=== PATIENT | male | born 1945 | race Two or more races ===

== ENCOUNTER 2017-12-22 14:25 | Outpatient (CLI) | payer OTHER | END 2017-12-22 15:04 | disposition home or self-care (01) | LOC: RAD 501 14:25 | DX: M79.604 Pain in right leg (principal); M25.571 Pain in right ankle and joints of right foot ==

== ENCOUNTER 2021-02-24 14:39 | Outpatient (CLI) | payer OTHER | END 2021-02-24 14:46 | disposition home or self-care (01) | LOC: RAD 14:39 | PROVIDERS: ATTEND Internal Medicine Cardiovascular Disease | DX: M54.59 Other low back pain (principal); M70.20 Olecranon bursitis, unspecified elbow; M79.604 Pain in right leg ==

== ENCOUNTER 2022-03-17 08:56 | Outpatient (CLI) | payer OTHER | END 2022-03-17 12:53 | disposition home or self-care (01) | LOC: TOM 08:56 | PROVIDERS: ATTEND Internal Medicine Cardiovascular Disease | DX: R10.32 Left lower quadrant pain (principal); K57.90 Diverticulosis of intestine, part unspecified, without perforation or abscess without bleeding; K57.30 Diverticulosis of large intestine without perforation or abscess without bleeding; K52.9 Noninfective gastroenteritis and colitis, unspecified ==

== ENCOUNTER 2022-06-10 10:31 | Outpatient (CLI) | payer OTHER | END 2022-06-10 11:21 | disposition home or self-care (01) | LOC: SONOGRAMA 10:31 | PROVIDERS: ATTEND Internal Medicine Gastroenterology | DX: R10.12 Left upper quadrant pain (principal); R10.13 Epigastric pain ==

== ENCOUNTER 2022-06-22 08:14 | Outpatient (CLI) | payer OTHER | END 2022-06-22 09:00 | disposition home or self-care (01) | LOC: RAD 08:14 | PROVIDERS: ATTEND Internal Medicine Cardiovascular Disease | DX: M54.2 Cervicalgia (principal) ==

== ENCOUNTER → 2022-07-09 | Outpatient (CLI) | payer OTHER | END | disposition home or self-care (01) | LOC: NUCLEAR 09:58 | PROVIDERS: ATTEND Physical Medicine & Rehabilitation | DX: I70.219 Atherosclerosis of native arteries of extremities with intermittent claudication, unspecified extremity (principal) ==

== ENCOUNTER → 2022-07-13 | Outpatient (CLI) | payer OTHER | END | disposition home or self-care (01) | LOC: NUCLEAR 09:37 | PROVIDERS: ATTEND Physical Medicine & Rehabilitation | DX: I87.2 Venous insufficiency (chronic) (peripheral) (principal) ==

== ENCOUNTER 2023-11-21 13:28 | Outpatient (CLI) | payer OTHER | END 2023-11-21 13:36 | disposition home or self-care (01) | LOC: RAD 13:28 | PROVIDERS: ATTEND Physical Medicine & Rehabilitation | DX: M17.2 Bilateral post-traumatic osteoarthritis of knee (principal); M16.12 Unilateral primary osteoarthritis, left hip; M54.2 Cervicalgia ==

== ENCOUNTER 2024-01-03 14:34 | Outpatient (CLI) | payer OTHER ==
[2024-01-10] MEDS ORDERED: DEXILANT60 MG (14:17)
[2024-01-10] MEDS ORDERED: PEPCID AC20 MG (14:17)
[2024-01-10] MEDS ORDERED: [UNRECOGNIZED DRUG - OTHER] (14:18)
[2024-01-10] MEDS ORDERED: ELIQUIS5 MG (14:18)
[2024-01-10] MEDS ORDERED: FINASTERIDE (14:20)
== END 2024-01-03 14:40 | disposition home or self-care (01) ==
LOC: RAD 14:34
PROVIDERS: ATTEND Surgery
DX: Z13.83 Encounter for screening for respiratory disorder NEC (principal)

== ENCOUNTER 2024-01-16 05:05 | Day surgery (SDC) | payer OTHER ==
[~2024-01-16 05:05] MED LIST: DEXILANT60 MG; ELIQUIS5 MG; FINASTERIDE; PEPCID AC20 MG; [UNRECOGNIZED DRUG - OTHER]
[2024-01-16] MEDS ORDERED: CIPROFLOXACIN IN 5 % DEXTROSE 400 MG/200 ML PIGGYBAG IV ONE (14:45)
[2024-01-16] MEDS ORDERED: MORPHINE SULFATE 4 MG/ML VIAL IV ONE (16:55)
[2024-01-16] MEDS ORDERED: SUGAMMADEX SODIUM 200 MG/2 ML VIAL IV ONE (17:15)
[2024-01-16] MEDS ORDERED: MORPHINE SULFATE 2 MG/ML CARTRIDGE IV ONE (17:55)
== END 2024-01-16 22:25 | disposition home or self-care (01) ==
LOC: CIR.AMB 05:05
PROVIDERS: ATTEND Surgery
DX: K40.91 Unilateral inguinal hernia, without obstruction or gangrene, recurrent (principal); Z88.1 Allergy status to other antibiotic agents; Z88.0 Allergy status to penicillin; I10 Essential (primary) hypertension; I49.9 Cardiac arrhythmia, unspecified; K59.00 Constipation, unspecified

== ENCOUNTER 2024-07-23 17:39 | Inpatient (IN) | payer OTHER ==
[~2024-07-23] VITALS: Ht 177.8 cm; Wt 70.8 kg
--- NOTE | 2024-07-23 18:47 | NUR ---
PTE ALERTA Y ORIENTADO X 3 ESFERAS QUIEN REFIERE TRAER ESTUDIO QUE REFIERE TENER OBSTRUCCION INTESTINAL.ENVIADO POR DR ZBIGNIEW MOORE.PTE NIEGA DOLOR.
[2024-07-23] MEDS ORDERED: REGLAN5 MG/5 ML (18:51)
[2024-07-23] MEDS ORDERED: ZOFRAN8 MG (18:51)
[2024-07-23] MEDS ORDERED: MULTAQ400 MG (18:51)
[2024-07-23] MEDS ORDERED: FAMOtidine 10 MG/ML (4ML VIAL) IV ONE (19:15)
[2024-07-23] MEDS ORDERED: CIPROFLOXACIN IN 5 % DEXTROSE 400 MG/200 ML PIGGYBAG IV ONE (19:15)
--- NOTE | 2024-07-23 19:19 | NUR ---
SE EDUCA A PACIENTE SOBRE ORDENES MEDICAS. SE COLECTAN MUESTRAS DE LAB Y SE OBTIENE ACCESO VENOSO PARA ADMINISTRACION DE MEDICAMENTOS
[2024-07-23 19:50] LABS: HEMATOCRIT 38.4 % (39.0-48.0); HEMOGLOBIN 13.1 g/dL (13-16.00); MEAN CELL VOLUME 93.5 fL (80.0-100.00); MEAN CORPUSCULAR HEMOGLOBIN 31.9 pg (27.00-32.0); MEAN CORPUSCULAR HGB CONC 34.1 g/dl (32.0-36.0); PLATELET COUNT 273 K/uL (150-450); RED BLOOD COUNT 4.11 M/uL (4.00-6.00); RED CELL DISTRIBUTION WIDTH 13.7 % (11.5-14.5)
[2024-07-23 20:04] LABS: INR 1.11; PARTIAL THROMBOPLASTIN TIME 28.8 SECONDS (22.0-34.0)
[2024-07-23 20:08] LABS: ALBUMIN 3.3 gm/dL (3.4-5.0); BILIRUBIN TOTAL 0.83 mg/dL (0.3-1.2); CALCIUM 8.8 mg/dL (8.5-10.1); CREATININE SERUM 0.73 mg/dL (0.70-1.30); GFR 103.64; GLOBULINA 3.1 G/DL (2.4-3.5); POTASSIUM 4.07 mEq/L (3.5-5.1); TOTAL PROTEIN 6.4 gm/dL (6.4-8.2)
[2024-07-23 21:52] LABS: URINE APPEARANCE Clear; URINE BILIRRUBIN Negative (NEGATIVE); URINE BLOOD Negative; URINE COLOR Yellow; URINE GLUCOSE Negative (NEGATIVE); URINE LEUKOCYTE Small; URINE NITRATE Negative; URINE PROTEIN Trace (NEGATIVE)
[2024-07-23 21:55] LABS: URINE BACTERIA 17.1 uL (0.0-1933); URINE EPITHELIAL CELLS 6.8 uL (0.0-38.8); URINE RBC 5.7 uL (0.0-20.8); URINE WBC 63.1 uL (0.0-23.2)
[2024-07-23 21:58] LABS: URINE CAST 0.14 uL (0.0-1.40); URINE KETONE 40 (NEGATIVE)
[2024-07-23] MEDS ORDERED: ONDANSETRON HCL 4 MG in 0.9 % SODIUM CHLORIDE 50 ML IV PRN (23:45)
[2024-07-23] MEDS ORDERED: ENALAPRILAT DIHYDRATE 1.25 MG/ML VIAL IV PRN (23:45)
[2024-07-23] MEDS ORDERED: 0.9 % SODIUM CHLORIDE 1,000 ML IV SCH (23:45)
[2024-07-24] MEDS ORDERED: METRONIDAZOLE/SODIUM CHLORIDE 100 ML IV SCH (01:00)
[2024-07-24 07:11] LABS: INR 1.14; PARTIAL THROMBOPLASTIN TIME 29.4 SECONDS (22.0-34.0); PROTHROMBIN TIME 12.3 SECONDS (9.0-11.5)
[2024-07-24 08:00] VITALS: BP 137/80; O2SAT 99
[2024-07-24] MEDS ORDERED: FAMOTIDINE/PF 20 MG in 0.9 % SODIUM CHLORIDE 8 ML IV PUSH SCH (09:00)
[2024-07-24] MEDS ORDERED: MULTAQ 400 MG PO SCH (09:00)
[2024-07-24] MEDS ORDERED: CIPROFLOXACIN IN 5 % DEXTROSE 200 ML IV SCH ×2 (09:00→13:00)
[2024-07-24] MEDS ORDERED: ENOXAPARIN SODIUM 40 MG/0.4 ML SYRINGE SUBCUTANEO SCH (09:00)
[2024-07-24 16:00] VITALS: BP 121/76; O2SAT 96
[2024-07-24] MEDS ORDERED: ENOXAPARIN SODIUM 60 MG/0.6 ML SYRINGE SUBCUTANEO SCH (17:00)
[2024-07-25 00:29] VITALS: BP 135/80; O2SAT 98
[2024-07-25 07:30] LABS: HEMATOCRIT 34.8 % (39.0-48.0); HEMOGLOBIN 12.1 g/dL (13-16.00); MEAN CELL VOLUME 93.5 fL (80.0-100.00); MEAN CORPUSCULAR HEMOGLOBIN 32.5 pg (27.00-32.0); MEAN CORPUSCULAR HGB CONC 34.7 g/dl (32.0-36.0); PLATELET COUNT 244 K/uL (150-450); RED BLOOD COUNT 3.72 M/uL (4.00-6.00); RED CELL DISTRIBUTION WIDTH 13.5 % (11.5-14.5)
[2024-07-25 08:00] VITALS: BP 144/86; O2SAT 98
[2024-07-25 08:17] LABS: CALCIUM 8.5 mg/dL (8.5-10.1); CREATININE SERUM 0.72 mg/dL (0.70-1.30); GFR 105.31; MAGNESIUM 1.8 mg/dL (1.8-2.4); PHOSPHOROUS 3.3 mg/dL (2.5-4.9); POTASSIUM 4.22 mEq/L (3.5-5.1)
[2024-07-25] MEDS ORDERED: CARVEDILOL 6.25 MG TABLET PO SCH (09:00)
[2024-07-25 16:00] VITALS: BP 123/76; O2SAT 98
[2024-07-25] MEDS ORDERED: DOXAZOSIN MESYLATE 1 MG TABLET PO SCH (21:00)
[2024-07-26 01:04] VITALS: BP 171/83; O2SAT 99
[2024-07-26 08:00] VITALS: BP 123/73; O2SAT 96
[2024-07-26] MEDS ORDERED: APIXABAN 5 MG TABLET PO SCH (09:00)
[2024-07-26 16:00] VITALS: BP 151/86; O2SAT 98
[2024-07-26] MEDS ORDERED: METOCLOPRAMIDE HCL 5 MG TABLET PO SCH (16:00)
[2024-07-26] MEDS ORDERED: FINASTERIDE 5 MG TABLET PO SCH (17:00)
[2024-07-26] MEDS ORDERED: LACTOBACILLUS ACIDOPHILUS 1 CAP CAP PO SCH (17:00)
[2024-07-26] MEDS ORDERED: PATIENTS OWN MEDICATION (MEDICAMENTO EN PISO) PO SCH ×2 (21:00)
[2024-07-26] MEDS ORDERED: DOXAZOSIN MESYLATE 2 MG TABLET PO SCH (21:00)
[2024-07-27 01:17] VITALS: BP 115/69; O2SAT 98
[2024-07-27 08:00] VITALS: BP 126/79; O2SAT 96
[2024-07-27] MEDS ORDERED: DIATRIZOATE MEGLUMINE, SODIUM 30 ML BOTTLE PO NR (13:00)
[2024-07-27 16:00] VITALS: BP 149/88; O2SAT 99
[2024-07-28 01:34] VITALS: BP 144/83; O2SAT 97
[2024-07-28 09:27] VITALS: BP 141/76; O2SAT 96
[2024-07-28 16:00] VITALS: BP 155/86; O2SAT 95
[2024-07-28] MEDS ORDERED: METOCLOPRAMIDE 5 MG PO SCH (16:00)
[2024-07-29 00:10] VITALS: BP 136/68; O2SAT 97
[2024-07-29 08:00] VITALS: BP 139/75; O2SAT 95
[2024-07-29 08:22] LABS: HEMATOCRIT 37.2 % (39.0-48.0); HEMOGLOBIN 12.7 g/dL (13-16.00); MEAN CELL VOLUME 94.9 fL (80.0-100.00); MEAN CORPUSCULAR HEMOGLOBIN 32.4 pg (27.00-32.0); MEAN CORPUSCULAR HGB CONC 34.2 g/dl (32.0-36.0); PLATELET COUNT 236 K/uL (150-450); RED BLOOD COUNT 3.92 M/uL (4.00-6.00); RED CELL DISTRIBUTION WIDTH 13.3 % (11.5-14.5)
[2024-07-29 09:03] LABS: CALCIUM 8.6 mg/dL (8.5-10.1); CREATININE SERUM 0.73 mg/dL (0.70-1.30); GFR 103.64; POTASSIUM 3.95 mEq/L (3.5-5.1)
[2024-07-29 16:00] VITALS: BP 150/83; O2SAT 100
[2024-07-30 00:25] VITALS: BP 131/61; O2SAT 96
[2024-07-30 08:00] VITALS: BP 124/72; O2SAT 98
[2024-07-30] MEDS ORDERED: CEFAZOLIN SODIUM 1,000 MG VIAL ONE (14:17)
[2024-07-30] MEDS ORDERED: hydrALAZINE HCL 20 MG VIAL ONE (14:26)
[2024-07-30] MEDS ORDERED: CIPROFLOXACIN IN 5 % DEXTROSE 400 MG/200 ML PIGGYBAG IV SCH (17:00)
[2024-07-30] MEDS ORDERED: MORPHINE SULFATE 4 MG/ML CARTRIDGE IV SCH (17:00)
[2024-07-30] MEDS ORDERED: ONDANSETRON HCL 2 MG/ML VIAL ONE (19:27)
[2024-07-30] MEDS ORDERED: CIPROFLOXACIN IN 5 % DEXTROSE 400 MG/200 ML PIGGYBAG IV ONE (19:28)
[2024-07-30] MEDS ORDERED: MORPHINE SULFATE 4 MG/ML VIAL IV ONE (19:30)
[2024-07-30] MEDS ORDERED: ENALAPRILAT DIHYDRATE 1.25 MG/ML VIAL IV PRN (19:45)
[2024-07-30] MEDS ORDERED: DEXTROSE 5 % AND 0.9 % NACL 1,000 ML IV SCH (19:45)
[2024-07-30] MEDS ORDERED: KETOROLAC TROMETHAMINE 30 MG VIAL ONE (20:21)
[2024-07-30] MEDS ORDERED: KETOROLAC TROMETHAMINE 30 MG VIAL IV ONE (21:00)
[2024-07-30] MEDS ORDERED: FAMOTIDINE/PF 20 MG/2 ML VIAL IV SCH (21:00)
[2024-07-31 00:15] VITALS: BP 99/52; O2SAT 96
[2024-07-31 08:00] VITALS: BP 127/73; O2SAT 97
[2024-07-31] MEDS ORDERED: ENOXAPARIN SODIUM 60 MG/0.6 ML SYRINGE SUBCUTANEO SCH (09:00)
[2024-07-31 10:16] LABS: HEMATOCRIT 36.8 % (39.0-48.0); HEMOGLOBIN 12.5 g/dL (13-16.00); MEAN CELL VOLUME 94.8 fL (80.0-100.00); MEAN CORPUSCULAR HEMOGLOBIN 32.2 pg (27.00-32.0); PLATELET COUNT 219 K/uL (150-450); RED BLOOD COUNT 3.88 M/uL (4.00-6.00); RED CELL DISTRIBUTION WIDTH 13.7 % (11.5-14.5)
[2024-07-31] MEDS ORDERED: PANTOPRAZOLE SODIUM 40 MG/VIAL VIAL IV NR (11:00)
[2024-07-31] MEDS ORDERED: SODIUM CL 0.9% 25 ML IV.SOLN. IV SCH (11:15)
[2024-07-31 11:18] LABS: CALCIUM 8.2 mg/dL (8.5-10.1); CREATININE SERUM 0.78 mg/dL (0.70-1.30); GFR 96.02; POTASSIUM 3.6 mEq/L (3.5-5.1)
[2024-07-31] MEDS ORDERED: 0.9 % SODIUM CHLORIDE 500 ML IV SCH (11:30)
[2024-07-31 16:00] VITALS: BP 148/85; O2SAT 99
[2024-07-31] MEDS ORDERED: METRONIDAZOLE/SODIUM CHLORIDE 100 ML IV SCH (17:00)
[2024-07-31] MEDS ORDERED: KETOROLAC TROMETHAMINE 30 MG VIAL IV PRN (18:15)
[2024-08-01] VITALS: BP 143/83; O2SAT 98
[2024-08-01] MEDS ORDERED: ONDANSETRON 4 MG TAB.RAPDIS PO PRN (08:45)
[2024-08-01] MEDS ORDERED: PANTOPRAZOLE SODIUM 40 MG/VIAL VIAL IV SCH (09:00)
[2024-08-01 10:28] VITALS: BP 129/82; O2SAT 98
[2024-08-01 16:50] VITALS: BP 151/66; O2SAT 97
[2024-08-01] MEDS ORDERED: PANTOPRAZOLE SODIUM 40 MG/VIAL VIAL IV PUSH STA (19:26)
[2024-08-02] VITALS (11 sets, daily range): BP systolic 70–140; BP diastolic 52–104; O2SAT 95–100
[2024-08-02] MEDS ORDERED: ONDANSETRON HCL 2 MG/ML VIAL IV PRN (09:45)
[2024-08-02] MEDS ORDERED: AMIODARONE HCL 50 MG/ML AMPUL IV ONE ×3 (10:07→11:30)
[2024-08-02] MEDS ORDERED: AMIODARONE IN DEXTROSE,ISO-OSM 360 MG/200 ML IV.SOLN IV ONE (10:07)
[2024-08-02 10:15] LABS: HEMATOCRIT 26.8 % (39.0-48.0); MEAN CORPUSCULAR HEMOGLOBIN 32.9 pg (27.00-32.0); MEAN CORPUSCULAR HGB CONC 35.4 g/dl (32.0-36.0); PLATELET COUNT 277 K/uL (150-450); RED BLOOD COUNT 2.88 M/uL (4.00-6.00); RED CELL DISTRIBUTION WIDTH 13.6 % (11.5-14.5)
[2024-08-02 10:17] LABS: HEMOGLOBIN 9.5 g/dL (13-16.00)
[2024-08-02 10:47] LABS: ALBUMIN 2.3 gm/dL (3.4-5.0); ALKALINE PHOSPHATASE 55 U/L (50-136); ALT/SGPT 15 U/L (12-78); AST/SGOT 13 U/L (15-37); BILIRUBIN TOTAL 0.97 mg/dL (0.3-1.2); BLOOD UREA NITROGEN 15 mg/dL (7-18); BUN CREA RATIO 17 (7.0-25.0); CALCIUM 8.6 mg/dL (8.5-10.1); CARBON DIOXIDE 25 mEq/L (21-32); CHLORIDE 106 mmol/L (98-107); CREATININE SERUM 0.89 mg/dL (0.70-1.30); GFR 82.46; PHOSPHOKINASE CREATININE 48 U/L (39-308); PHOSPHOROUS 2.4 mg/dL (2.5-4.9); SODIUM 141 mmol/L (136-145); TOTAL PROTEIN 5.3 gm/dL (6.4-8.2)
[2024-08-02 10:51] LABS: ANION GAP 13 (10.0-20.0); C-REACTIVE PROTEIN 3.91 MG/DL (0.00-0.29); CKMB < 1.0 NG/ML (0.5-3.6); OSMOLALITY SERUM 288 MOSM/KG (275-295)
[2024-08-02] MEDS ORDERED: AMIODARONE HCL 50 MG/ML AMPUL IV STA (11:27)
[2024-08-02] MEDS ORDERED: AMIODARONE HCL 900 MG in DEXTROSE 5 % IN WATER 500 ML IV SCH (11:30)
[2024-08-02 11:46] LABS: POTASSIUM 2.74 mEq/L (3.5-5.1)
[2024-08-02 11:51] LABS: GLUCOSE FASTING 213 mg/dL (65-100)
[2024-08-02] MEDS ORDERED: MAGNESIUM SULFATE IN WATER 2 GM/50 ML PIGGYBAG IV NR (12:00)
[2024-08-02] MEDS ORDERED: POTASSIUM CHLORIDE IN WATER 40 MEQ/100 ML PIGGYBAG IV NR (12:00)
[2024-08-02 12:45] LABS: ABG PH 7.534 (7.35-7.45); ABG PO2 99.5 mmHg (80-100); ABG pCO2 22.5 mmHg (35-45); BASE EXCESS -1.9 mmol/l; BICARBONATE 18.5 mmol/l (23-25); SaO2 98.4 %; Tco2 19.2 mmol/l
[2024-08-02 12:46] LABS: allen test SATISFACTORY; mode NASAL CANNULA; o2 28 %; puncture site RADIAL LEFT
[2024-08-02] MEDS ORDERED: MEROPENEM 500 MG/VIAL VIAL IV SCH (14:00)
[2024-08-02] MEDS ORDERED: VANCOMYCIN HCL 1,000 MG VIAL ONE (15:51)
[2024-08-02] MEDS ORDERED: NA PHOS,M-B/NA PHOS,DI-BA 1 BOTTLE ENEMA RECTAL NR (16:30)
[2024-08-02] MEDS ORDERED: VANCOMYCIN HCL 1,000 MG VIAL IV SCH (17:00)
[2024-08-02] MEDS ORDERED: 0.9 % SODIUM CHLORIDE 1,000 ML IV SCH (22:00)
[2024-08-03] VITALS (24 sets, daily range): BP systolic 121–159; BP diastolic 52–85; O2SAT 100
[2024-08-03] MEDS ORDERED: VANCOMYCIN HCL 1,000 MG VIAL ONE ×2 (04:24→16:04)
[2024-08-03 05:44] LABS: MEAN CELL VOLUME 93.9 fL (80.0-100.00); MEAN CORPUSCULAR HGB CONC 34.5 g/dl (32.0-36.0); PLATELET COUNT 196 K/uL (150-450); RED BLOOD COUNT 2.21 M/uL (4.00-6.00); RED CELL DISTRIBUTION WIDTH 13.6 % (11.5-14.5)
[2024-08-03 05:55] LABS: MEAN CORPUSCULAR HEMOGLOBIN 32.1 pg (27.00-32.0)
[2024-08-03 05:58] LABS: HEMATOCRIT 20.7 % (39.0-48.0); HEMOGLOBIN 7.1 g/dL (13-16.00); ob POSITIVE (NEGATIVE)
[2024-08-03 06:31] LABS: ALBUMIN 2.1 gm/dL (3.4-5.0); BILIRUBIN TOTAL 0.36 mg/dL (0.3-1.2); CALCIUM 8.1 mg/dL (8.5-10.1); CREATININE SERUM 0.61 mg/dL (0.70-1.30); GFR 127.51; GLOBULINA 2.3 G/DL (2.4-3.5); TOTAL PROTEIN 4.4 gm/dL (6.4-8.2)
[2024-08-03 06:51] LABS: POTASSIUM 2.93 mEq/L (3.5-5.1)
[2024-08-03] MEDS ORDERED: POTASSIUM CHLORIDE IN WATER 40 MEQ/100 ML PIGGYBAG IV NR (09:30)
[2024-08-03] MEDS ORDERED: AMIODARONE HCL 900 MG in DEXTROSE 5 % IN WATER 500 ML IV SCH (10:15)
[2024-08-03] MEDS ORDERED: CHLORHEXIDINE GLUCONATE 120 ML BOTTLE TOP ONE (10:21)
[2024-08-03] MEDS ORDERED: MAGNESIUM SULFATE IN WATER 50 ML IV NR (12:00)
[2024-08-04] MEDS ORDERED: VANCOMYCIN HCL 1,000 MG VIAL ONE ×2 (00:22→17:13)
[2024-08-04 05:00] VITALS: BP 123/59; O2SAT 100
[2024-08-04 07:06] VITALS: BP 115/59; O2SAT 100
[2024-08-04 07:59] LABS: HEMATOCRIT 23.8 % (39.0-48.0); MEAN CELL VOLUME 88.3 fL (80.0-100.00); MEAN CORPUSCULAR HGB CONC 35.6 g/dl (32.0-36.0); PLATELET COUNT 170 K/uL (150-450); RED BLOOD COUNT 2.69 M/uL (4.00-6.00)
[2024-08-04 08:00] LABS: HEMOGLOBIN 8.5 g/dL (13-16.00); MEAN CORPUSCULAR HEMOGLOBIN 31.5 pg (27.00-32.0)
[2024-08-04 12:11] VITALS: BP 141/61; O2SAT 99
[2024-08-04 15:20] VITALS: BP 143/63; O2SAT 100
[2024-08-04 20:00] VITALS: BP 143/66; O2SAT 100
[2024-08-04 20:41] LABS: HEMATOCRIT 28.4 % (39.0-48.0); HEMOGLOBIN 9.8 g/dL (13-16.00); MEAN CELL VOLUME 88.1 fL (80.0-100.00); MEAN CORPUSCULAR HEMOGLOBIN 30.6 pg (27.00-32.0); MEAN CORPUSCULAR HGB CONC 34.7 g/dl (32.0-36.0); PLATELET COUNT 169 K/uL (150-450); RED BLOOD COUNT 3.22 M/uL (4.00-6.00); RED CELL DISTRIBUTION WIDTH 15.7 % (11.5-14.5)
[2024-08-04 23:27] VITALS: BP 138/62; O2SAT 100
[2024-08-05 04:09] VITALS: BP 116/62; O2SAT 100
[2024-08-05 07:02] VITALS: BP 124/56; O2SAT 98
[2024-08-05] MEDS ORDERED: VANCOMYCIN HCL 1,000 MG VIAL ONE ×2 (08:56→19:06)
[2024-08-05] MEDS ORDERED: VANCOMYCIN HCL 1,000 MG VIAL IV SCH (09:00)
[2024-08-05 11:59] LABS: HEMATOCRIT 30.4 % (39.0-48.0); HEMOGLOBIN 10.6 g/dL (13-16.00); MEAN CELL VOLUME 88.3 fL (80.0-100.00); MEAN CORPUSCULAR HEMOGLOBIN 30.7 pg (27.00-32.0); MEAN CORPUSCULAR HGB CONC 34.7 g/dl (32.0-36.0); PLATELET COUNT 176 K/uL (150-450); RED BLOOD COUNT 3.44 M/uL (4.00-6.00); RED CELL DISTRIBUTION WIDTH 15.7 % (11.5-14.5)
[2024-08-05 12:00] VITALS: BP 147/71; O2SAT 100
[2024-08-05 12:37] LABS: CALCIUM 7.9 mg/dL (8.5-10.1); CREATININE SERUM 0.44 mg/dL (0.70-1.30); GFR 185.9; POTASSIUM 3.26 mEq/L (3.5-5.1)
[2024-08-05 15:19] VITALS: BP 138/72; O2SAT 98
[2024-08-05 18:51] VITALS: BP 134/65; O2SAT 100
[2024-08-05 20:15] VITALS: BP 142/66; O2SAT 98
[2024-08-06] VITALS: BP 146/70; O2SAT 97
[2024-08-06] MEDS ORDERED: VANCOMYCIN HCL 1,000 MG VIAL ONE ×2 (08:01→14:15)
[2024-08-06 08:08] VITALS: BP 132/66; O2SAT 96
[2024-08-06 12:00] VITALS: BP 119/77; O2SAT 96
[2024-08-06 16:20] VITALS: BP 147/83; O2SAT 98
[2024-08-06] MEDS ORDERED: PANTOPRAZOLE SODIUM 40 MG/VIAL VIAL IV SCH (18:01)
[2024-08-07] VITALS: BP 137/72; O2SAT 95
[2024-08-07 08:29] VITALS: BP 134/73; O2SAT 96
[2024-08-07 12:26] LABS: HEMATOCRIT 37.6 % (39.0-48.0); HEMOGLOBIN 12.7 g/dL (13-16.00); MEAN CELL VOLUME 90.1 fL (80.0-100.00); MEAN CORPUSCULAR HEMOGLOBIN 30.4 pg (27.00-32.0); MEAN CORPUSCULAR HGB CONC 33.8 g/dl (32.0-36.0); PLATELET COUNT 250 K/uL (150-450); RED BLOOD COUNT 4.18 M/uL (4.00-6.00); RED CELL DISTRIBUTION WIDTH 15.2 % (11.5-14.5)
[2024-08-07 14:05] LABS: URINE APPEARANCE Clear; URINE BILIRRUBIN Negative (NEGATIVE); URINE BLOOD Negative; URINE COLOR Yellow; URINE GLUCOSE Negative (NEGATIVE); URINE LEUKOCYTE Negative; URINE NITRATE Negative; URINE PROTEIN Negative (NEGATIVE)
[2024-08-07 14:09] LABS: URINE EPITHELIAL CELLS 1.4 uL (0.0-38.8); URINE RBC 4.8 uL (0.0-20.8); URINE WBC 4.7 uL (0.0-23.2)
[2024-08-07 14:13] LABS: URINE BACTERIA 2.4 uL (0.0-1933); URINE CAST 0.14 uL (0.0-1.40); URINE KETONE 80 (NEGATIVE)
[2024-08-07] MEDS ORDERED: PHENAZOPYRIDINE HCL 100 MG TABLET PO SCH (17:00)
[2024-08-07] MEDS ORDERED: FAMOtidine 40 MG TABLET PO SCH (17:00)
[2024-08-07] MEDS ORDERED: PHENAZOPYRIDINE HCL 100 MG TABLET PO STA (19:59)
[2024-08-08 00:27] VITALS: BP 151/75; O2SAT 97
[2024-08-08] MEDS ORDERED: ACETAMINOPHEN 500 MG GEL..CAP PO PRN (02:00)
[2024-08-08] MEDS ORDERED: PHENAZOPYRIDINE HCL 100 MG TABLET PO SCH (08:00)
[2024-08-08 08:55] VITALS: BP 159/78; O2SAT 96
[2024-08-08] MEDS ORDERED: POLYETHYLENE GLYCOL 3350 238 GM POWDER PO SCH (09:00)
[2024-08-08] MEDS ORDERED: POLYETHYLENE GLYCOL 3350 17 GM BLIST.PACK PO SCH (09:00)
[2024-08-08 09:01] LABS: CALCIUM 7.8 mg/dL (8.5-10.1); CREATININE SERUM 0.48 mg/dL (0.70-1.30); GFR 168.14
[2024-08-08 09:06] LABS: POTASSIUM 2.91 mEq/L (3.5-5.1)
[2024-08-08] MEDS ORDERED: POTASSIUM CHLORIDE IN WATER 40 MEQ/100 ML PIGGYBAG IV NR (12:00)
[2024-08-08 18:03] VITALS: BP 149/75; O2SAT 96
[2024-08-09 00:05] VITALS: BP 138/90; O2SAT 96
[2024-08-09 08:46] VITALS: BP 156/73; O2SAT 93
[2024-08-09] MEDS ORDERED: METOPROLOL SUCCINATE 25 MG TAB.SR.24H PO SCH (09:00)
[2024-08-09] MEDS ORDERED: LACTULOSE 20 G/30 ML BLIST.PACK PO STA (10:36)
[2024-08-09] MEDS ORDERED: MINERAL OIL 30 ML BLIST.PACK PO STA (10:37)
[2024-08-09] MEDS ORDERED: MAGNESIUM HYDROXIDE 30 ML BLIST.PACK PO STA (10:37)
[2024-08-09] MEDS ORDERED: MORPHINE SULFATE 2 MG/ML CARTRIDGE IV PRN (10:45)
[2024-08-09] MEDS ORDERED: MORPHINE SULFATE 4 MG/ML CARTRIDGE IV PRN (15:30)
[2024-08-09] MEDS ORDERED: DOXAZOSIN MESYLATE 2 MG TABLET PO SCH (17:00)
[2024-08-09 23:36] VITALS: BP 136/80; O2SAT 93
[2024-08-10 07:58] LABS: CALCIUM 8.6 mg/dL (8.5-10.1); CREATININE SERUM 0.7 mg/dL (0.70-1.30); GFR 108.79; POTASSIUM 3.96 mEq/L (3.5-5.1)
[2024-08-10 08:00] VITALS: BP 128/82; O2SAT 96
[2024-08-10] MEDS ORDERED: SENNA/DOCUSATE SODIUM 1 TAB TABLET PO SCH (09:00)
[2024-08-10 15:00] VITALS: BP 128/80; BP 151/91; O2SAT 93; O2SAT 95
[2024-08-10] MEDS ORDERED: ONDANSETRON HCL 4 MG in 0.9 % SODIUM CHLORIDE 50 ML IV PRN (16:30)
[2024-08-10] MEDS ORDERED: APIXABAN 5 MG TABLET PO SCH (17:00)
[2024-08-10] MEDS ORDERED: PANTOPRAZOLE SODIUM 40 MG/VIAL VIAL IV SCH (17:00)
[2024-08-11 00:43] VITALS: BP 130/78; O2SAT 94
[2024-08-11] MEDS ORDERED: SODIUM CL 0.9% 50 ML IV.SOLN IV ONE (01:41)
[2024-08-11 08:00] VITALS: BP 141/79; O2SAT 92
[2024-08-11 13:20] LABS: ABG PH 7.466 (7.35-7.45); ABG PO2 76.7 mmHg (80-100); ABG pCO2 29.2 mmHg (35-45); BASE EXCESS -1.8 mmol/l; BICARBONATE 20.6 mmol/l (23-25); Tco2 21.5 mmol/l
[2024-08-11 13:56] LABS: allen test SATISFACTORY; mode ROOM AIR; o2 21 %; puncture site RADIAL RIGHT
== END 2024-08-11 15:00 | disposition home or self-care (01) | DRG 331 ==
LOC: ER 17:40 → SURH 23:46 → SEC-K 23:46 → SURH 07-24 01:55 → ICU 08-02 14:39 → SURG 08-05 17:25 → EDBD 08-11 15:00
PROVIDERS: General Practice; Internal Medicine; Internal Medicine Infectious Disease; Surgery; ADMIT Student in an Organized Health Care Education/Training Program; ATTEND Student in an Organized Health Care Education/Training Program
PROC: BW21ZZZ Computerized Tomography (CT Scan) of Abdomen and Pelvis (ICD-10-PCS; 2024-07-27)
PROC: 0DJD0ZZ Inspection of Lower Intestinal Tract, Open Approach (ICD-10-PCS; 2024-07-30)
PROC: 0DN84ZZ Release Small Intestine, Percutaneous Endoscopic Approach (ICD-10-PCS; 2024-07-30)
PROC: 0D9670Z Drainage of Stomach with Drainage Device, Via Natural or Artificial Opening (ICD-10-PCS; 2024-07-30)
PROC: 0DB84ZZ Excision of Small Intestine, Percutaneous Endoscopic Approach (ICD-10-PCS; principal; 2024-07-30 17:00)
PROC: B24BYZZ Ultrasonography of Heart with Aorta using Other Contrast (ICD-10-PCS; 2024-08-02)
PROC: 02HV33Z Insertion of Infusion Device into Superior Vena Cava, Percutaneous Approach (ICD-10-PCS; 2024-08-02)
PROC: 30243N1 Transfusion of Nonautologous Red Blood Cells into Central Vein, Percutaneous Approach (ICD-10-PCS; 2024-08-03)
PROC: 4A12X4Z Monitoring of Cardiac Electrical Activity, External Approach (ICD-10-PCS; 2024-08-05)
PROC: BW4GZZZ Ultrasonography of Pelvic Region (ICD-10-PCS; 2024-08-09)
DX: K56.609 Unspecified intestinal obstruction, unspecified as to partial versus complete obstruction (principal); K29.00 Acute gastritis without bleeding; E87.6 Hypokalemia; I48.91 Unspecified atrial fibrillation

== ENCOUNTER 2024-08-11 21:42 | Inpatient (IN) | payer OTHER ==
[~2024-08-11] VITALS: Ht 180.3 cm; Wt 72.6 kg
[~2024-08-11 21:42] MED LIST changes: +MULTAQ400 MG; +REGLAN5 MG/5 ML; +ZOFRAN8 MG
--- NOTE | 2024-08-11 22:24 | NUR ---
PACIENTE ALERTA Y ORIENTADO X3 ACOMPANADO DE LOS PARAMEDICOS, LOS MISMO INDICAN FUERON LLAMADOS POR HIPOTENSION Y AL EVALUAR OBSERVARON PTE CON TAQUICARDIA SUPRAVENTRICULAR 180 A 200 LT/MIN A ESO 9:04 PM. REFIERE ILEANA REALIZADO CARDIOVERSION 9:22 PM 70J Y 9:26 50J. PTE CON OXIGENO Y MONITOREO CARDIACO. SE UBICA EN CRITICO 3.
[2024-08-11] MEDS ORDERED: 0.9 % SODIUM CHLORIDE 1,000 ML IV SCH (23:15)
[2024-08-12] VITALS (23 sets, daily range): BP systolic 105–156; BP diastolic 52–89; O2SAT 78–100
[2024-08-12 05:17] LABS: INR 1.04; PARTIAL THROMBOPLASTIN TIME 27.1 SECONDS (22.0-34.0); PROTHROMBIN TIME 11.3 SECONDS (9.0-11.5)
[2024-08-12 05:54] LABS: ALBUMIN 2.3 gm/dL (3.4-5.0); BILIRUBIN TOTAL 0.77 mg/dL (0.3-1.2); CREATININE SERUM 0.74 mg/dL (0.70-1.30); GFR 102.03; GLOBULINA 2.4 G/DL (2.4-3.5); POTASSIUM 3.55 mEq/L (3.5-5.1); TOTAL PROTEIN 4.7 gm/dL (6.4-8.2)
[2024-08-12 05:56] LABS: CKMB 4.3 NG/ML (0.5-3.6)
[2024-08-12 06:01] LABS: URINE APPEARANCE Clear; URINE BILIRRUBIN Small (NEGATIVE); URINE BLOOD Trace; URINE COLOR Dark Yellow; URINE GLUCOSE Negative (NEGATIVE); URINE LEUKOCYTE Small; URINE NITRATE Positive; URINE PROTEIN 30 (NEGATIVE)
[2024-08-12 06:02] LABS: URINE BACTERIA 9.7 uL (0.0-1933); URINE CAST 3.23 uL (0.0-1.40); URINE WBC 25.3 uL (0.0-23.2)
[2024-08-12 06:17] LABS: URINE KETONE >=160 (NEGATIVE)
[2024-08-12 06:25] LABS: INFLUENZA A AG NEGATIVE (NEGATIVE)
[2024-08-12 06:26] LABS: COVID-19 AG NEGATIVE (NEGATIVE)
[2024-08-12 08:52] LABS: ABG PH 7.456 (7.35-7.45); ABG PO2 98.8 mmHg (80-100); ABG pCO2 28.7 mmHg (35-45); BASE EXCESS -2.6 mmol/l; BICARBONATE 19.8 mmol/l (23-25); Tco2 20.7 mmol/l
[2024-08-12] MEDS ORDERED: PANTOPRAZOLE SODIUM 40 MG/VIAL VIAL IV SCH (09:00)
[2024-08-12] MEDS ORDERED: CARVEDILOL 6.25 MG TABLET PO SCH (09:00)
[2024-08-12] MEDS ORDERED: APIXABAN 5 MG TABLET PO SCH (09:00)
[2024-08-12] MEDS ORDERED: METOPROLOL SUCCINATE 25 MG TAB.SR.24H PO SCH ×2 (09:00→17:00)
[2024-08-12 09:13] LABS: allen test SATISFACTORY; mode NASAL CANNULA; o2 28 %; puncture site RADIAL RIGHT
[2024-08-12] MEDS ORDERED: ONDANSETRON HCL 2 MG/ML VIAL ONE (10:10)
[2024-08-12] MEDS ORDERED: ONDANSETRON HCL 2 MG/ML VIAL IV PRN (13:30)
[2024-08-12 15:31] LABS: HEMATOCRIT 35.8 % (39.0-48.0); HEMOGLOBIN 11.9 g/dL (13-16.00); MEAN CELL VOLUME 91.1 fL (80.0-100.00); MEAN CORPUSCULAR HEMOGLOBIN 30.4 pg (27.00-32.0); MEAN CORPUSCULAR HGB CONC 33.3 g/dl (32.0-36.0); PLATELET COUNT 328 K/uL (150-450); RED BLOOD COUNT 3.93 M/uL (4.00-6.00); RED CELL DISTRIBUTION WIDTH 15.8 % (11.5-14.5)
[2024-08-12] MEDS ORDERED: DOXAZOSIN MESYLATE 2 MG TABLET PO SCH ×2 (21:00)
[2024-08-13] VITALS (23 sets, daily range): BP systolic 112–160; BP diastolic 63–107; O2SAT 64–99
[2024-08-13 06:45] LABS: HEMATOCRIT 33.1 % (39.0-48.0); HEMOGLOBIN 11.6 g/dL (13-16.00); MEAN CELL VOLUME 89.2 fL (80.0-100.00); MEAN CORPUSCULAR HEMOGLOBIN 31.2 pg (27.00-32.0); MEAN CORPUSCULAR HGB CONC 34.9 g/dl (32.0-36.0); PLATELET COUNT 294 K/uL (150-450); RED BLOOD COUNT 3.71 M/uL (4.00-6.00); RED CELL DISTRIBUTION WIDTH 15.8 % (11.5-14.5)
[2024-08-13 07:22] LABS: CREATININE SERUM 0.64 mg/dL (0.70-1.30); GFR 120.64; POTASSIUM 3.23 mEq/L (3.5-5.1)
[2024-08-13] MEDS ORDERED: TAMSULOSIN HCL 0.4 MG CAP PO SCH (09:00)
[2024-08-13] MEDS ORDERED: POTASSIUM CHLORIDE 20MEQ/100ML H2O PB IV NR (14:00)
[2024-08-13] MEDS ORDERED: AMIODARONE HCL 900 MG in DEXTROSE 5 % IN WATER 500 ML IV SCH (14:30)
[2024-08-14] MEDS ORDERED: AMIODARONE HCL 200 MG TABLET ONE (04:30)
[2024-08-14] MEDS ORDERED: AMIODARONE HCL 200 MG TABLET PO SCH (05:00)
[2024-08-14] MEDS ORDERED: METOPROLOL SUCCINATE 25 MG TAB.SR.24H PO SCH (05:00)
[2024-08-15] VITALS (8 sets, daily range): BP systolic 141–160; BP diastolic 68–83; O2SAT 90–99
[2024-08-15] MEDS ORDERED: CHLORHEXIDINE GLUCONATE 120 ML BOTTLE TOP ONE (10:08)
[2024-08-15] MEDS ORDERED: METOPROLOL SUCCINATE 25 MG TAB.SR.24H PO ONE (10:37)
[2024-08-15] MEDS ORDERED: APIXABAN 5 MG TABLET PO ONE (10:49)
[2024-08-15] MEDS ORDERED: TAMSULOSIN HCL 0.4 MG CAP PO ONE (10:49)
[2024-08-15] MEDS ORDERED: METOPROLOL SUCCINATE 50 MG TAB.SR.24H PO ONE (10:49)
[2024-08-15] MEDS ORDERED: PANTOPRAZOLE SODIUM 40 MG/VIAL VIAL ONE (10:50)
[2024-08-15] MEDS ORDERED: AMIODARONE HCL 200 MG TABLET ONE (10:50)
[2024-08-15] MEDS ORDERED: METOPROLOL SUCCINATE 100 MG TAB.SR.24H PO SCH (17:00)
[2024-08-15] MEDS ORDERED: FUROsemide 20 MG/2 ML VIAL IV SCH (17:07)
[2024-08-15] MEDS ORDERED: FUROsemide 20 MG/2 ML VIAL IV NR (18:00)
[2024-08-15] MEDS ORDERED: METOCLOPRAMIDE HCL 5 MG/ML VIAL IV NR (18:00)
[2024-08-15] MEDS ORDERED: ALBUMIN HUMAN 100 ML VIAL IV ONE (18:00)
[2024-08-15 18:06] LABS: HEMATOCRIT 34.1 % (39.0-48.0); HEMOGLOBIN 11.6 g/dL (13-16.00); MEAN CELL VOLUME 88.7 fL (80.0-100.00); MEAN CORPUSCULAR HEMOGLOBIN 30.1 pg (27.00-32.0); PLATELET COUNT 289 K/uL (150-450); RED BLOOD COUNT 3.85 M/uL (4.00-6.00)
[2024-08-15 18:33] LABS: ALBUMIN 1.9 gm/dL (3.4-5.0); BILIRUBIN TOTAL 1.14 mg/dL (0.3-1.2); CALCIUM 7.8 mg/dL (8.5-10.1); CREATININE SERUM 0.47 mg/dL (0.70-1.30); GFR 172.27; GLOBULINA 2.6 G/DL (2.4-3.5); TOTAL PROTEIN 4.5 gm/dL (6.4-8.2)
[2024-08-15 18:40] LABS: POTASSIUM 2.94 mEq/L (3.5-5.1)
[2024-08-15] MEDS ORDERED: POTASSIUM CHLORIDE 20MEQ/100ML H2O PB IV ONE (18:45)
[2024-08-16] VITALS (8 sets, daily range): BP systolic 122–130; BP diastolic 64–68; O2SAT 95–99
[2024-08-16 06:50] LABS: CALCIUM 7.9 mg/dL (8.5-10.1); CREATININE SERUM 0.53 mg/dL (0.70-1.30); GFR 149.97; POTASSIUM 3.1 mEq/L (3.5-5.1)
[2024-08-16] MEDS ORDERED: METOCLOPRAMIDE HCL 5 MG/ML VIAL IV SCH (09:00)
[2024-08-16] MEDS ORDERED: FUROsemide 20 MG/2 ML VIAL IV SCH (09:00)
[2024-08-16] MEDS ORDERED: LACTOBACILLUS ACIDOPHILUS 1 CAP CAP PO SCH (09:00)
[2024-08-16] MEDS ORDERED: POTASSIUM CHLORIDE 20MEQ/100ML H2O PB IV NR (17:00)
[2024-08-16] MEDS ORDERED: PANTOPRAZOLE SODIUM 40 MG/VIAL VIAL IV NR (18:00)
[2024-08-17 00:28] VITALS: BP 152/63; O2SAT 91
[2024-08-17 02:00] VITALS: O2SAT 97
[2024-08-17] MEDS ORDERED: PANTOPRAZOLE SODIUM 40 MG/VIAL VIAL IV SCH (09:00)
[2024-08-17 10:00] VITALS: BP 125/63; O2SAT 98
[2024-08-17 16:18] VITALS: O2SAT 90
[2024-08-17] MEDS ORDERED: POTASSIUM CHLORIDE IN WATER 100 ML IV NR (18:00)
[2024-08-17 18:27] VITALS: BP 170/85
[2024-08-17 19:11] VITALS: O2SAT 95
[2024-08-17] MEDS ORDERED: MELATONIN 5 MG TABLET PO SCH (21:00)
[2024-08-18] VITALS (9 sets, daily range): BP systolic 125–152; BP diastolic 70–77; O2SAT 90–98
[2024-08-18 08:56] LABS: CALCIUM 7.7 mg/dL (8.5-10.1); CREATININE SERUM 0.56 mg/dL (0.70-1.30); GFR 140.74
[2024-08-18 09:55] LABS: POTASSIUM 2.42 mEq/L (3.5-5.1)
[2024-08-18] MEDS ORDERED: POTASSIUM CHLORIDE IN WATER 40 MEQ/100 ML PIGGYBAG IV SCH (13:00)
[2024-08-19] VITALS (9 sets, daily range): BP systolic 110–144; BP diastolic 70–77; O2SAT 89–97
[2024-08-19 15:58] LABS: CREATININE SERUM 0.55 mg/dL (0.70-1.30); GFR 143.7
[2024-08-19 16:27] LABS: POTASSIUM 2.61 mEq/L (3.5-5.1)
[2024-08-19] MEDS ORDERED: POTASSIUM CHLORIDE IN WATER 40 MEQ/100 ML PIGGYBAG IV SCH (17:00)
[2024-08-20] VITALS (8 sets, daily range): BP systolic 104–109; BP diastolic 61–77; O2SAT 90–98
[2024-08-20] MEDS ORDERED: ACETAMINOPHEN 325 MG TABLET PO PRN (09:15)
[2024-08-20] MEDS ORDERED: METOCLOPRAMIDE HCL 10 MG TABLET PO SCH (11:00)
[2024-08-20 13:26] LABS: CALCIUM 8.2 mg/dL (8.5-10.1); CREATININE SERUM 0.71 mg/dL (0.70-1.30); GFR 107.02; PHOSPHOROUS 2.9 mg/dL (2.5-4.9); POTASSIUM 3.1 mEq/L (3.5-5.1)
[2024-08-20 14:15] LABS: MAGNESIUM 1.3 mg/dL (1.8-2.4)
[2024-08-20] MEDS ORDERED: MAGNESIUM SULFATE IN WATER 2 GM/50 ML PIGGYBAG IV STA (15:45)
[2024-08-21] VITALS (9 sets, daily range): BP systolic 93–114; BP diastolic 56–71; O2SAT 90–98
[2024-08-21] MEDS ORDERED: MAGNESIUM SULFATE IN WATER 50 ML IV ONE (05:00)
[2024-08-21] MEDS ORDERED: POTASSIUM CHLORIDE IN WATER 100 ML IV NR (08:00)
[2024-08-21] MEDS ORDERED: FUROsemide 20 MG/2 ML VIAL IV SCH (09:00)
[2024-08-21] MEDS ORDERED: PANTOPRAZOLE SODIUM 40 MG/VIAL VIAL IV PUSH NR (17:45)
[2024-08-21 19:36] LABS: HEMATOCRIT 35.8 % (39.0-48.0); HEMOGLOBIN 12.2 g/dL (13-16.00); MEAN CORPUSCULAR HEMOGLOBIN 30.8 pg (27.00-32.0); MEAN CORPUSCULAR HGB CONC 34.2 g/dl (32.0-36.0); PLATELET COUNT 222 K/uL (150-450); RED BLOOD COUNT 3.97 M/uL (4.00-6.00); RED CELL DISTRIBUTION WIDTH 16.2 % (11.5-14.5)
[2024-08-21 20:02] LABS: BILIRUBIN TOTAL 0.53 mg/dL (0.3-1.2); CALCIUM 7.8 mg/dL (8.5-10.1); CREATININE SERUM 0.72 mg/dL (0.70-1.30); GFR 105.31; GLOBULINA 2.7 G/DL (2.4-3.5); POTASSIUM 3.01 mEq/L (3.5-5.1); TOTAL PROTEIN 4.7 gm/dL (6.4-8.2)
[2024-08-22] VITALS (9 sets, daily range): BP systolic 90–105; BP diastolic 60–70; O2SAT 90–99
[2024-08-22] MEDS ORDERED: PANTOPRAZOLE SODIUM 40 MG/VIAL VIAL IV SCH (09:00)
[2024-08-22 09:49] LABS: CALCIUM 7.6 mg/dL (8.5-10.1); CREATININE SERUM 0.61 mg/dL (0.70-1.30); GFR 127.51; POTASSIUM 3.17 mEq/L (3.5-5.1)
[2024-08-22] MEDS ORDERED: POTASSIUM CHLORIDE 10 MEQ CAPSULE PO SCH (12:51)
[2024-08-23] VITALS (9 sets, daily range): BP systolic 98–113; BP diastolic 57–73; O2SAT 90–97
[2024-08-23 09:09] LABS: CALCIUM 6.6 mg/dL (8.5-10.1); CREATININE SERUM 0.54 mg/dL (0.70-1.30); GFR 146.77
[2024-08-23 09:53] LABS: POTASSIUM 2.52 mEq/L (3.5-5.1)
[2024-08-23] MEDS ORDERED: METOCLOPRAMIDE HCL 10 MG TABLET PO SCH (11:00)
[2024-08-23] MEDS ORDERED: POTASSIUM CHLORIDE IN WATER 100 ML IV NR (11:30)
[2024-08-23] MEDS ORDERED: METOCLOPRAMIDE HCL 5 MG/5 ML ML PO SCH (11:51)
[2024-08-23] MEDS ORDERED: POTASSIUM CHLORIDE 10 MEQ CAPSULE PO SCH (13:00)
[2024-08-23] MEDS ORDERED: PANTOPRAZOLE SODIUM 40 MG TABLET.DR PO SCH (17:00)
[2024-08-23] MEDS ORDERED: POTASSIUM CHLORIDE 20MEQ/100ML H2O PB IV NR (21:00)
[2024-08-24] VITALS (9 sets, daily range): BP systolic 98–134; BP diastolic 65–82; O2SAT 90–98
[2024-08-24 10:15] LABS: CALCIUM 7.7 mg/dL (8.5-10.1); CREATININE SERUM 0.65 mg/dL (0.70-1.30); GFR 118.5; POTASSIUM 3.92 mEq/L (3.5-5.1)
[2024-08-25 01:02] VITALS: O2SAT 97
[2024-08-25 03:04] VITALS: BP 100/61; O2SAT 99
[2024-08-25 09:24] LABS: CALCIUM 7.6 mg/dL (8.5-10.1); CREATININE SERUM 0.77 mg/dL (0.70-1.30); GFR 97.46; POTASSIUM 4.47 mEq/L (3.5-5.1)
[2024-08-25 10:12] VITALS: O2SAT 97
[2024-08-25 17:58] VITALS: O2SAT 93
[2024-08-25 18:46] VITALS: BP 107/69
[2024-08-25 20:59] VITALS: O2SAT 90
[2024-08-26 00:50] VITALS: O2SAT 97
[2024-08-26 02:03] VITALS: BP 105/64; O2SAT 97
[2024-08-26 06:08] VITALS: O2SAT 99
[2024-08-26 09:07] VITALS: BP 120/77
== END 2024-08-26 13:58 | disposition home or self-care (01) | DRG 310 ==
LOC: ER 21:42 → EDBD 23:44 → ICU 08-12 03:41 → MEDJ 08-12 03:41 → O/R 08-16 13:30 → MEDJ 08-16 13:31
PROVIDERS: Emergency Medicine Pediatric Emergency Medicine; General Practice; Internal Medicine; ADMIT Student in an Organized Health Care Education/Training Program; ATTEND Student in an Organized Health Care Education/Training Program
PROC: 02HV33Z Insertion of Infusion Device into Superior Vena Cava, Percutaneous Approach (ICD-10-PCS; 2024-08-13)
PROC: BW21ZZZ Computerized Tomography (CT Scan) of Abdomen and Pelvis (ICD-10-PCS; principal; 2024-08-14)
PROC: 4A12X4Z Monitoring of Cardiac Electrical Activity, External Approach (ICD-10-PCS; 2024-08-15)
DX: I48.91 Unspecified atrial fibrillation (principal); I49.9 Cardiac arrhythmia, unspecified; E87.6 Hypokalemia

== ENCOUNTER 2024-10-12 16:24 | Inpatient (IN) | payer OTHER ==
[~2024-10-12] VITALS: Ht 180.3 cm; Wt 79.4 kg
[2024-10-12] MEDS ORDERED: AMIODARONE HCL100 MG PO (16:58)
[2024-10-12] MEDS ORDERED: DEXILANT60 MG PO (16:58)
[2024-10-12] MEDS ORDERED: FINASTERIDE5 MG PO (16:58)
[2024-10-12] MEDS ORDERED: PEPCID AC20 MG PO (16:58)
[2024-10-12] MEDS ORDERED: CARVEDILOL3.125 MG (16:58)
[2024-10-12] MEDS ORDERED: ELIQUIS5 MG PO (16:58)
[2024-10-12] MEDS ORDERED: MAG DELAY64 M1 (16:59)
[2024-10-12] MEDS ORDERED: LASIX20 MG PO (16:59)
[2024-10-12] MEDS ORDERED: TAMS0.4C PO (16:59)
[2024-10-12] MEDS ORDERED: MELATONIN10 M2 (17:00)
[2024-10-12] MEDS ORDERED: 0.9 % SODIUM CHLORIDE 1,000 ML IV SCH ×2 (17:15→18:45)
[2024-10-12] MEDS ORDERED: LIDOCAINE HCL VISCOUS 20MG/ML BLIST 15ML MM ONE (17:18)
[2024-10-12 17:40] LABS: BASO % 0.1 % (0.1-1.2); EOS # 0.02 (0.04-0.54); EOS % 0.3 % (0.7-7.0); LYMPH # 2.20 (1.18-3.74); LYMPH % 29.5 % (19.3-53.1); MEAN PLATELET VOLUME 8.90 fl (9.4-12.4); MONO # 0.64 (0.24-0.82); MONO % 8.6 % (4.7-12.5); NEUT # 4.57 (1.56-6.13); NEUT % 61.2 % (34.0-71.1); RED CELL DISTRIBUTION WIDTH 16.7 % (11.6-14.4)
[2024-10-12 18:03] LABS: ALT/SGPT 25.0 U/L (12-78); AST/SGOT 17.0 U/L (15-37); BILIRUBIN TOTAL 0.53 mg/dL (0.3-1.2); BUN CREA RATIO 22.0 (7.0-25.0); CREATININE SERUM 0.94 mg/dL (0.70-1.30); GFR 77.42; GLOBULINA 2.9 G/DL (2.4-3.5); GLUCOSE FASTING 96.0 mg/dL (65-100); OSMOLALITY SERUM 279.0 MOSM/KG (275-295)
[2024-10-12 18:36] LABS: URINE APPEARANCE Clear; URINE BILIRRUBIN Negative (NEGATIVE); URINE BLOOD Negative; URINE COLOR Yellow; URINE GLUCOSE Negative (NEGATIVE); URINE KETONE Negative (NEGATIVE); URINE LEUKOCYTE Negative; URINE NITRATE Negative; URINE PROTEIN Negative (NEGATIVE); URINE UROBILINOGEN 1.0 E.U./dl
[2024-10-12] MEDS ORDERED: ALBUMIN HUMAN-25 0.25GM/ML (50ML) VIAL IV SCH (18:36)
[2024-10-12 18:39] LABS: URINE WBC 2.8 uL (0.0-23.2)
[2024-10-12] MEDS ORDERED: FAMOTIDINE/PF 20 MG in 0.9 % SODIUM CHLORIDE 8 ML IV PUSH SCH (18:39)
[2024-10-12 18:41] LABS: URINE BACTERIA 3.6 uL (0.0-1933); URINE CAST 0.00 uL (0.0-1.40); URINE EPITHELIAL CELLS 1.1 uL (0.0-38.8); URINE RBC 1.6 uL (0.0-20.8)
[2024-10-12] MEDS ORDERED: POTASSIUM CHLORIDE 20MEQ/100ML H2O PB IV ONE ×2 (18:45→19:07)
[2024-10-12] MEDS ORDERED: ONDANSETRON HCL 4 MG in 0.9 % SODIUM CHLORIDE 50 ML IV PRN (18:45)
[2024-10-12] MEDS ORDERED: METRONIDAZOLE/SODIUM CHLORIDE 500 MG/100 ML PIGGYBACK IV ONE (19:07)
[2024-10-12] MEDS ORDERED: CIPROFLOXACIN IN 5 % DEXTROSE 400 MG/200 ML PIGGYBAG IV ONE (19:07)
[2024-10-12] MEDS ORDERED: ENOXAPARIN SODIUM 80 MG/0.8 ML SYRINGE SUBCUTANEO ONE (19:08)
[2024-10-12] MEDS ORDERED: FAMOTIDINE/PF 20 MG/2 ML VIAL ONE (19:08)
[2024-10-12 20:01] LABS: INR 1.18
[2024-10-12] MEDS ORDERED: CIPROFLOXACIN IN 5 % DEXTROSE 200 ML IV SCH (21:00)
[2024-10-12] MEDS ORDERED: ENOXAPARIN SODIUM 80 MG/0.8 ML SYRINGE SUBCUTANEO SCH (21:00)
[2024-10-12] MEDS ORDERED: POTASSIUM PHOS,M-BASIC-D-BASIC 9 MM in 0.9 % SODIUM CHLORIDE 250 ML IV ONE (21:00)
[2024-10-12 22:20] VITALS: BP 96/68; O2SAT 99
[2024-10-12 23:00] VITALS: O2SAT 95
[2024-10-13] VITALS (9 sets, daily range): BP systolic 89–101; BP diastolic 52–67; O2SAT 90–100
[2024-10-13] MEDS ORDERED: AMINO ACIDS 4.25 %/DEXTROSE 5% 1,000 ML PERIFERAL SCH (17:00)
[2024-10-14] VITALS (9 sets, daily range): BP systolic 102–104; BP diastolic 62–70; O2SAT 89–100
[2024-10-14 08:09] LABS: BASO % 0.6 % (0.1-1.2); EOS # 0.10 (0.04-0.54); EOS % 2.0 % (0.7-7.0); LYMPH # 1.89 (1.18-3.74); LYMPH % 38.1 % (19.3-53.1); MEAN PLATELET VOLUME 9.50 fl (9.4-12.4); MONO # 0.42 (0.24-0.82); MONO % 8.5 % (4.7-12.5); NEUT # 2.51 (1.56-6.13); NEUT % 50.6 % (34.0-71.1); RED CELL DISTRIBUTION WIDTH 16.6 % (11.6-14.4)
[2024-10-14 08:26] LABS: ALT/SGPT 18 U/L (12-78); AST/SGOT 12 U/L (15-37); BILIRUBIN TOTAL 0.43 mg/dL (0.3-1.2); BUN CREA RATIO 18 (7.0-25.0); CREATININE SERUM 0.76 mg/dL (0.70-1.30); GFR 98.94; GLOBULINA 2.0 G/DL (2.4-3.5); GLUCOSE FASTING 100 mg/dL (65-100); OSMOLALITY SERUM 278 MOSM/KG (275-295)
[2024-10-14] MEDS ORDERED: levoFLOXacin IN DEXTROSE 5 % 150 ML IV SCH (09:00)
[2024-10-15] VITALS (8 sets, daily range): BP systolic 94–102; BP diastolic 59–66; O2SAT 90–96
[2024-10-15 09:03] LABS: BASO % 0.5 % (0.1-1.2); EOS # 0.06 (0.04-0.54); EOS % 1.5 % (0.7-7.0); LYMPH # 1.59 (1.18-3.74); LYMPH % 39.7 % (19.3-53.1); MEAN PLATELET VOLUME 9.80 fl (9.4-12.4); MONO # 0.39 (0.24-0.82); MONO % 9.7 % (4.7-12.5); NEUT # 1.93 (1.56-6.13); NEUT % 48.1 % (34.0-71.1); RED CELL DISTRIBUTION WIDTH 16.1 % (11.6-14.4)
[2024-10-15] MEDS ORDERED: VANCOMYCIN HCL 1,000 MG VIAL ONE (20:10)
[2024-10-15] MEDS ORDERED: VANCOMYCIN HCL 1,000 MG VIAL IV SCH (21:00)
[2024-10-16] VITALS (9 sets, daily range): BP systolic 89–99; BP diastolic 60–66; O2SAT 92–98
[2024-10-16] MEDS ORDERED: VANCOMYCIN HCL 1,000 MG VIAL ONE ×2 (06:34→14:11)
[2024-10-16 07:42] LABS: BASO % 0.1 % (0.1-1.2); EOS # 0.01 (0.04-0.54); EOS % 0.1 % (0.7-7.0); LYMPH # 2.44 (1.18-3.74); LYMPH % 29.4 % (19.3-53.1); MEAN PLATELET VOLUME 9.60 fl (9.4-12.4); MONO # 0.59 (0.24-0.82); MONO % 7.1 % (4.7-12.5); NEUT # 5.24 (1.56-6.13); NEUT % 63.1 % (34.0-71.1); RED CELL DISTRIBUTION WIDTH 15.9 % (11.6-14.4)
[2024-10-16] MEDS ORDERED: MORPHINE SULFATE 2 MG/ML CARTRIDGE IV PRN (12:30)
[2024-10-16] MEDS ORDERED: ALBUMIN HUMAN 0.25GM/ML (50ML) VIAL IV NR (13:00)
[2024-10-16] MEDS ORDERED: AA 5 %/CALCIUM/LYTES/DEXT 20 % 2,000 ML CENTRAL SCH (17:00)
[2024-10-17] VITALS (10 sets, daily range): BP systolic 98–105; BP diastolic 61–72; O2SAT 87–98
[2024-10-17] MEDS ORDERED: AMIODARONE HCL 200 MG TABLET NGT SCH (11:50)
[2024-10-17] MEDS ORDERED: PHENOL 177 ML BOTTLE MM SCH (17:00)
[2024-10-17] MEDS ORDERED: TAMSULOSIN HCL 0.4 MG CAP PO NR (19:45)
[2024-10-17] MEDS ORDERED: HYOSCYAMINE SULFATE 0.125 MG TAB.SUBL SL PRN (19:45)
[2024-10-18] VITALS (9 sets, daily range): BP systolic 93–99; BP diastolic 60–66; O2SAT 90–99
[2024-10-18 07:39] LABS: BASO % 0.2 % (0.1-1.2); EOS # 0.03 (0.04-0.54); EOS % 0.6 % (0.7-7.0); LYMPH # 1.48 (1.18-3.74); LYMPH % 30.3 % (19.3-53.1); MEAN PLATELET VOLUME 11.10 fl (9.4-12.4); MONO # 0.41 (0.24-0.82); MONO % 8.4 % (4.7-12.5); NEUT # 2.94 (1.56-6.13); NEUT % 60.1 % (34.0-71.1); RED CELL DISTRIBUTION WIDTH 15.7 % (11.6-14.4)
[2024-10-18 08:10] LABS: ALT/SGPT 11.0 U/L (12-78); AST/SGOT 10.0 U/L (15-37); BILIRUBIN TOTAL 0.31 mg/dL (0.3-1.2); BUN CREA RATIO 26.0 (7.0-25.0); CREATININE SERUM 0.84 mg/dL (0.70-1.30); GFR 88.14; GLOBULINA 2.1 G/DL (2.4-3.5); GLUCOSE FASTING 127.0 mg/dL (65-100); OSMOLALITY SERUM 282.0 MOSM/KG (275-295)
[2024-10-18] MEDS ORDERED: TAMSULOSIN HCL 0.4 MG CAP PO SCH (09:00)
[2024-10-18] MEDS ORDERED: METOCLOPRAMIDE HCL 5 MG/ML VIAL IV SCH (09:00)
[2024-10-18] MEDS ORDERED: PANTOPRAZOLE SODIUM 40 MG/VIAL VIAL IV SCH (09:00)
[2024-10-18] MEDS ORDERED: AMIODARONE HCL 200 MG TABLET NGT SCH (09:00)
[2024-10-18] MEDS ORDERED: POTASSIUM CHLORIDE 20MEQ/100ML H2O PB IV NR (12:35)
[2024-10-18] MEDS ORDERED: DIATRIZOATE MEGLUMINE, SODIUM 30 ML BOTTLE PO STA (15:25)
[2024-10-19] VITALS (8 sets, daily range): BP systolic 96–99; BP diastolic 61–62; O2SAT 89–98
[2024-10-19 07:02] LABS: BASO % 0.2 % (0.1-1.2); EOS # 0.05 (0.04-0.54); EOS % 1.1 % (0.7-7.0); LYMPH # 1.59 (1.18-3.74); LYMPH % 35.3 % (19.3-53.1); MEAN PLATELET VOLUME 10.00 fl (9.4-12.4); MONO # 0.42 (0.24-0.82); MONO % 9.3 % (4.7-12.5); NEUT # 2.43 (1.56-6.13); NEUT % 53.9 % (34.0-71.1); RED CELL DISTRIBUTION WIDTH 15.6 % (11.6-14.4)
[2024-10-19 07:36] LABS: BUN CREA RATIO 31.0 (7.0-25.0); CREATININE SERUM 0.52 mg/dL (0.70-1.30); GFR 153.3; GLUCOSE FASTING 118.0 mg/dL (65-100); OSMOLALITY SERUM 284.0 MOSM/KG (275-295)
[2024-10-19] MEDS ORDERED: DIATRIZOATE MEGLUMINE, SODIUM 30 ML BOTTLE PO STA (10:14)
[2024-10-20] VITALS (8 sets, daily range): BP systolic 92–107; BP diastolic 55–70; O2SAT 89–99
[2024-10-20 14:27] LABS: BASO % 0.2 % (0.1-1.2); EOS # 0.03 (0.04-0.54); EOS % 0.7 % (0.7-7.0); LYMPH # 1.33 (1.18-3.74); LYMPH % 31.1 % (19.3-53.1); MEAN PLATELET VOLUME 9.90 fl (9.4-12.4); MONO # 0.37 (0.24-0.82); MONO % 8.6 % (4.7-12.5); NEUT # 2.53 (1.56-6.13); NEUT % 59.2 % (34.0-71.1); RED CELL DISTRIBUTION WIDTH 16.2 % (11.6-14.4)
[2024-10-20 14:46] LABS: BUN CREA RATIO 32.0 (7.0-25.0); CREATININE SERUM 0.6 mg/dL (0.70-1.30); GFR 129.97; GLUCOSE FASTING 119.0 mg/dL (65-100); OSMOLALITY SERUM 287.0 MOSM/KG (275-295)
[2024-10-21] VITALS (9 sets, daily range): BP systolic 101–111; BP diastolic 63–69; O2SAT 90–98
[2024-10-22] VITALS (8 sets, daily range): BP systolic 102–105; BP diastolic 62–65; O2SAT 94–99
[2024-10-22 06:42] LABS: BASO % 0.5 % (0.1-1.2); EOS # 0.08 (0.04-0.54); EOS % 1.8 % (0.7-7.0); LYMPH # 1.49 (1.18-3.74); LYMPH % 34.3 % (19.3-53.1); MEAN PLATELET VOLUME 9.40 fl (9.4-12.4); MONO # 0.36 (0.24-0.82); MONO % 8.3 % (4.7-12.5); NEUT # 2.38 (1.56-6.13); NEUT % 54.9 % (34.0-71.1); RED CELL DISTRIBUTION WIDTH 15.9 % (11.6-14.4)
[2024-10-22 07:12] LABS: INR 1.05
[2024-10-22 07:16] LABS: ALT/SGPT 10 U/L (12-78); AST/SGOT 8 U/L (15-37); BILIRUBIN TOTAL 0.25 mg/dL (0.3-1.2); BILIRUBIN,CONJUGATED < 0.10 mg/dL (0.0-0.2); BUN CREA RATIO 39 (7.0-25.0); CHOL HDL RATIO 3.1 (0-5.0); CREATININE SERUM 0.38 mg/dL (0.70-1.30); GFR 220.17; GLOBULINA 2.2 G/DL (2.4-3.5); GLUCOSE FASTING 120 mg/dL (65-100); HDL 27 mg/dl (40-60); LDL 47 mg/dl (0-130); OSMOLALITY SERUM 285 MOSM/KG (275-295); VLDL 11 (0-39)
[2024-10-22 08:40] LABS: UREA CLEARANCE 53.0 ML/MIN
[2024-10-22] MEDS ORDERED: POTASSIUM CHLORIDE/D5-0.9%NACL 1,000 ML IV ONE (13:00)
[2024-10-22] MEDS ORDERED: POTASSIUM CHLORIDE IN WATER 100 ML IV NR (13:15)
[2024-10-22] MEDS ORDERED: SIMETHICONE 125 MG CAPSULE PO SCH (17:00)
[2024-10-22] MEDS ORDERED: ACETAMINOPHEN 500 MG GEL..CAP PO PRN (21:45)
[2024-10-23 01:05] VITALS: O2SAT 90
[2024-10-23 01:33] VITALS: BP 94/58; O2SAT 97
[2024-10-23 04:53] VITALS: O2SAT 90
[2024-10-23 08:00] VITALS: BP 107/63; O2SAT 99
[2024-10-23 09:02] VITALS: O2SAT 99
[2024-10-23] MEDS ORDERED: FLUCONAZOLE IN NACL,ISO-OSM 200 MG/100 ML PIGGYBAG IV NR (14:45)
[2024-10-23 15:02] LABS: COVID-19 AG NEGATIVE (NEGATIVE)
[2024-10-23] MEDS ORDERED: CLOTRIMAZOLE 10 MG TROCHE MM SCH (17:00)
[2024-10-23 17:06] VITALS: BP 137/71; O2SAT 97
[2024-10-24 01:02] VITALS: BP 90/57; O2SAT 96
[2024-10-24 08:00] VITALS: BP 90/60; O2SAT 99
[2024-10-24] MEDS ORDERED: PANTOPRAZOLE SODIUM 40 MG/VIAL VIAL IV SCH (09:00)
[2024-10-24] MEDS ORDERED: BENZONATATE 200 MG CAPSULE PO PRN (11:30)
[2024-10-24 12:00] VITALS: BP 86/60; O2SAT 99
[2024-10-24] MEDS ORDERED: FLUCONAZOLE IN NACL,ISO-OSM 2 MG/ML ML IV SCH (12:00)
[2024-10-24] MEDS ORDERED: AMINO ACIDS/PROTEIN HYDROLYS 30 ML BLIST.PACK PO SCH (13:00)
[2024-10-24 16:00] VITALS: BP 103/66; O2SAT 98
[2024-10-24 19:24] VITALS: O2SAT 97
[2024-10-25] VITALS (9 sets, daily range): BP systolic 103–129; BP diastolic 63–73; O2SAT 90–100
[2024-10-25 07:59] LABS: BASO % 0.3 % (0.1-1.2); EOS # 0.05 (0.04-0.54); EOS % 1.7 % (0.7-7.0); LYMPH # 1.05 (1.18-3.74); LYMPH % 36.3 % (19.3-53.1); MEAN PLATELET VOLUME 9.10 fl (9.4-12.4); MONO # 0.31 (0.24-0.82); MONO % 10.7 % (4.7-12.5); NEUT # 1.46 (1.56-6.13); NEUT % 50.7 % (34.0-71.1); RED CELL DISTRIBUTION WIDTH 15.4 % (11.6-14.4)
[2024-10-25] MEDS ORDERED: POVIDONE-IODINE SCRUB 118 ML BOTT TOP PRN (11:00)
[2024-10-25] MEDS ORDERED: METOCLOPRAMIDE HCL 10 MG TABLET PO SCH (11:00)
[2024-10-25] MEDS ORDERED: ALUMINUM HYD PO PRN (13:30)
[2024-10-25] MEDS ORDERED: LIDOCAINE HCL PO PRN (13:30)
[2024-10-25] MEDS ORDERED: MAG HYDROX PO PRN (13:30)
[2024-10-25] MEDS ORDERED: SIMETH DIPHENHYDRAMINE HCL PO PRN (13:30)
[2024-10-26] VITALS (7 sets, daily range): BP systolic 112–114; BP diastolic 73–74; O2SAT 89–99
[2024-10-26] MEDS ORDERED: ONDANSETRON HCL 4 MG in 0.9 % SODIUM CHLORIDE 50 ML IV PRN (03:45)
[2024-10-26] MEDS ORDERED: MAGNESIUM SULFATE IN WATER 50 ML IV NR (10:00)
[2024-10-26] MEDS ORDERED: POTASSIUM CHLORIDE 20MEQ/100ML H2O PB IV NR ×2 (10:00→12:00)
[2024-10-26] MEDS ORDERED: METHYLPREDNISOLONE SOD SUCC 125 MG VIAL IV SCH (11:30)
[2024-10-26] MEDS ORDERED: DIPHENHYDRAMINE HCL 50 MG/ML VIAL 1ML IV SCH (11:30)
[2024-10-26] MEDS ORDERED: FLUCONAZOLE IN NACL,ISO-OSM 200 MG/100 ML PIGGYBAG IV NR (14:30)
[2024-10-26] MEDS ORDERED: TAMSULOSIN HCL 0.4 MG CAP PO SCH (17:00)
[2024-10-26] MEDS ORDERED: DOCUSATE SODIUM 100MG CAP PO SCH (21:10)
[2024-10-27] VITALS (7 sets, daily range): BP systolic 101–120; BP diastolic 60–72; O2SAT 90–97
[2024-10-27 08:49] LABS: BASO % 0.0 % (0.1-1.2); EOS # 0.00 (0.04-0.54); EOS % 0.0 % (0.7-7.0); LYMPH # 0.47 (1.18-3.74); LYMPH % 11.0 % (19.3-53.1); MEAN PLATELET VOLUME 9.10 fl (9.4-12.4); MONO # 0.07 (0.24-0.82); MONO % 1.6 % (4.7-12.5); NEUT # 3.74 (1.56-6.13); NEUT % 87.2 % (34.0-71.1); RED CELL DISTRIBUTION WIDTH 15.2 % (11.6-14.4)
[2024-10-27 08:53] LABS: COVID-19 AG NEGATIVE (NEGATIVE)
[2024-10-27] MEDS ORDERED: AMIODARONE HCL 200 MG TABLET PO SCH (09:00)
[2024-10-27 09:05] LABS: ALT/SGPT 19.0 U/L (12-78); AST/SGOT 15.0 U/L (15-37); BILIRUBIN TOTAL 0.27 mg/dL (0.3-1.2); BUN CREA RATIO 40.0 (7.0-25.0); CREATININE SERUM 0.48 mg/dL (0.70-1.30); GFR 168.14; GLOBULINA 2.8 G/DL (2.4-3.5); GLUCOSE FASTING 170.0 mg/dL (65-100); OSMOLALITY SERUM 280.0 MOSM/KG (275-295)
[2024-10-27] MEDS ORDERED: SODIUM CHLORIDE FOR INHALATION 1 VIAL.NEB IH NR (13:00)
[2024-10-27] MEDS ORDERED: FLUCONAZOLE IN NACL,ISO-OSM 2 MG/ML ML IV SCH (17:00)
[2024-10-27] MEDS ORDERED: SODIUM CHLORIDE FOR INHALATION 1 VIAL.NEB IH SCH (21:00)
[2024-10-28] VITALS (10 sets, daily range): BP systolic 95–123; BP diastolic 58–72; O2SAT 86–95
[2024-10-28 11:48] LABS: ABG PH 7.460 (7.35-7.45); BICARBONATE 23.7 mmol/l (23-25)
[2024-10-28] MEDS ORDERED: IPRATROPIUM BROMIDE 0.5 MG/2.5 ML AMPUL.NEB IH SCH (17:00)
[2024-10-28] MEDS ORDERED: LACTULOSE 20 G/30 ML BLIST.PACK PO SCH (17:00)
[2024-10-28 22:45] LABS: ABG PO2 53.2 mmHg (80-100); o2 32 %
[2024-10-29] VITALS (10 sets, daily range): BP systolic 111–116; BP diastolic 66–71; O2SAT 80–95
[2024-10-29] MEDS ORDERED: PHENAZOPYRIDINE HCL 100 MG TABLET PO SCH (13:00)
[2024-10-29 14:16] LABS: COVID-19 AG NEGATIVE (NEGATIVE)
[2024-10-29] MEDS ORDERED: PANTOPRAZOLE SODIUM 40 MG/VIAL VIAL IV SCH (17:00)
[2024-10-29] MEDS ORDERED: METOCLOPRAMIDE HCL 10 MG in 0.9 % SODIUM CHLORIDE 50 ML IV SCH (18:00)
[2024-10-29 21:15] LABS: URINE APPEARANCE Cloudy; URINE BILIRRUBIN Small (NEGATIVE); URINE BLOOD Large; URINE COLOR Orange; URINE GLUCOSE Negative (NEGATIVE); URINE KETONE Negative (NEGATIVE); URINE LEUKOCYTE Moderate; URINE NITRATE Positive; URINE PROTEIN 30 (NEGATIVE); URINE UROBILINOGEN 1.0 E.U./dl
[2024-10-29 21:16] LABS: URINE EPITHELIAL CELLS 56.7 uL (0.0-38.8); URINE RBC 1955.0 uL (0.0-20.8); URINE WBC 420.6 uL (0.0-23.2)
[2024-10-29 21:19] LABS: URINE BACTERIA > 9821.5 uL (0.0-1933); URINE CAST 1.02 uL (0.0-1.40)
[2024-10-30] VITALS (8 sets, daily range): BP systolic 98–114; BP diastolic 64–70; O2SAT 73–95
[2024-10-30 08:23] LABS: BASO % 0.0 % (0.1-1.2); EOS # 0.00 (0.04-0.54); EOS % 0.0 % (0.7-7.0); LYMPH # 0.64 (1.18-3.74); LYMPH % 11.4 % (19.3-53.1); MEAN PLATELET VOLUME 8.80 fl (9.4-12.4); MONO # 0.23 (0.24-0.82); MONO % 4.1 % (4.7-12.5); NEUT # 4.72 (1.56-6.13); NEUT % 84.0 % (34.0-71.1); RED CELL DISTRIBUTION WIDTH 14.8 % (11.6-14.4)
[2024-10-30 09:14] LABS: ALT/SGPT 15.0 U/L (12-78); AST/SGOT 23.0 U/L (15-37); BILIRUBIN TOTAL 0.55 mg/dL (0.3-1.2); BUN CREA RATIO 24.0 (7.0-25.0); CREATININE SERUM 0.84 mg/dL (0.70-1.30); GFR 88.14; GLOBULINA 3.1 G/DL (2.4-3.5); GLUCOSE FASTING 86.0 mg/dL (65-100); OSMOLALITY SERUM 279.0 MOSM/KG (275-295)
[2024-10-30 09:53] LABS: ABG PH 7.490 (7.35-7.45); BICARBONATE 24.8 mmol/l (23-25)
[2024-10-30 10:03] LABS: ABG PO2 51.9 mmHg (80-100); o2 100 %
[2024-10-30] MEDS ORDERED: ENOXAPARIN SODIUM 80 MG/0.8 ML SYRINGE SUBCUTANEO SCH (10:54)
[2024-10-30 14:11] LABS: ABG PH 7.514 (7.35-7.45); ABG PO2 61.7 mmHg (80-100); BICARBONATE 26.1 mmol/l (23-25)
[2024-10-30 14:50] LABS: o2 65 %
[2024-10-30] MEDS ORDERED: MEROPENEM 500 MG/VIAL VIAL IV SCH (18:00)
[2024-10-30] MEDS ORDERED: VANCOMYCIN HCL 1,000 MG VIAL IV SCH (21:00)
[2024-10-31] VITALS (10 sets, daily range): BP systolic 49–130; BP diastolic 31–98; O2SAT 90–100
[2024-10-31 09:48] LABS: COVID-19 AG NEGATIVE (NEGATIVE)
[2024-10-31] MEDS ORDERED: AA 5 %/CALCIUM/LYTES/DEXT 20 % 2,000 ML CENTRAL SCH (17:00)
[2024-10-31] MEDS ORDERED: AMIODARONE HCL 450MG/9ML VIAL IV SCH (20:30)
[2024-10-31] MEDS ORDERED: NOREPINEPHRINE BITARTRATE 8 MG in DEXTROSE 5 % IN WATER 250 ML IV SCH (20:30)
[2024-10-31] MEDS ORDERED: ENOXAPARIN SODIUM 80 MG/0.8 ML SYRINGE SUBCUTANEO SCH (21:00)
[2024-11-01] VITALS (24 sets, daily range): BP systolic 95–146; BP diastolic 52–100; O2SAT 97–100
[2024-11-01] MEDS ORDERED: AMIODARONE HCL 900 MG in DEXTROSE 5 % IN WATER 500 ML IV SCH (07:00)
[2024-11-01] MEDS ORDERED: POLYETHYLENE GLYCOL 3350 17 GM BLIST.PACK PO SCH (09:00)
[2024-11-01] MEDS ORDERED: ANIDULAFUNGIN 100 MG VIAL IV NR (17:00)
[2024-11-01 20:06] LABS: MONONUCLEAR 91.6 %; POLYMORPHONUCLEAR 8.4 %
[2024-11-01 20:11] LABS: GLU PLEURAL FLUID 162.0 mg/dl; LDH PLEURAL FLUID 128.0 U/L; TP PLEURAL FLUID 1.7 g/dl
[2024-11-02] VITALS (14 sets, daily range): BP systolic 91–128; BP diastolic 58–87; O2SAT 98–100
[2024-11-02 07:23] LABS: URINE APPEARANCE Clear; URINE BILIRRUBIN Small (NEGATIVE); URINE BLOOD NHT; URINE COLOR Orange; URINE KETONE Negative (NEGATIVE); URINE LEUKOCYTE Small; URINE NITRATE Positive; URINE UROBILINOGEN 1.0 E.U./dl
[2024-11-02 07:24] LABS: URINE BACTERIA 23.9 uL (0.0-1933); URINE EPITHELIAL CELLS 22.6 uL (0.0-38.8); URINE RBC 61.3 uL (0.0-20.8); URINE WBC 14.1 uL (0.0-23.2)
[2024-11-02 07:30] LABS: URINE CAST 1.02 uL (0.0-1.40); URINE GLUCOSE 100 MG/DL (NEGATIVE); URINE PROTEIN 100 (NEGATIVE)
[2024-11-02 07:34] LABS: BASO % 0.0 % (0.1-1.2); EOS # 0.02 (0.04-0.54); EOS % 0.5 % (0.7-7.0); LYMPH # 0.69 (1.18-3.74); LYMPH % 17.0 % (19.3-53.1); MEAN PLATELET VOLUME 9.30 fl (9.4-12.4); MONO # 0.19 (0.24-0.82); MONO % 4.7 % (4.7-12.5); NEUT # 3.14 (1.56-6.13); NEUT % 77.1 % (34.0-71.1); RED CELL DISTRIBUTION WIDTH 14.0 % (11.6-14.4)
[2024-11-02 07:42] LABS: BUN CREA RATIO 27.0 (7.0-25.0); CREATININE SERUM 0.63 mg/dL (0.70-1.30); GFR 122.85; GLUCOSE FASTING 170.0 mg/dL (65-100); OSMOLALITY SERUM 276.0 MOSM/KG (275-295)
[2024-11-02] MEDS ORDERED: POTASSIUM PHOS,M-BASIC-D-BASIC 3 MM/ML VIAL IV STA (08:02)
[2024-11-02] MEDS ORDERED: NYSTATIN 5 ML BLIST.PACK PO SCH (09:00)
[2024-11-02] MEDS ORDERED: POTASSIUM CHLORIDE IN WATER 40 MEQ/100 ML PIGGYBAG IV SCH (10:00)
[2024-11-02] MEDS ORDERED: ANIDULAFUNGIN 100 MG VIAL IV SCH (13:00)
[2024-11-02] MEDS ORDERED: AMIODARONE HCL 450 MG in DEXTROSE 5 % IN WATER 250 ML IV SCH (13:30)
[2024-11-03] VITALS (20 sets, daily range): BP systolic 98–129; BP diastolic 53–733; O2SAT 98–100
[2024-11-03 08:52] LABS: BASO % 0.1 % (0.1-1.2); EOS # 0.00 (0.04-0.54); EOS % 0.0 % (0.7-7.0); LYMPH # 0.53 (1.18-3.74); LYMPH % 7.1 % (19.3-53.1); MEAN PLATELET VOLUME 9.30 fl (9.4-12.4); MONO # 0.28 (0.24-0.82); MONO % 3.7 % (4.7-12.5); NEUT # 6.62 (1.56-6.13); NEUT % 88.4 % (34.0-71.1); RED CELL DISTRIBUTION WIDTH 13.7 % (11.6-14.4)
[2024-11-03 09:36] LABS: ALT/SGPT 9.0 U/L (12-78); AST/SGOT 11.0 U/L (15-37); BILIRUBIN TOTAL 0.53 mg/dL (0.3-1.2); BUN CREA RATIO 34.0 (7.0-25.0); CREATININE SERUM 0.61 mg/dL (0.70-1.30); GFR 127.51; GLOBULINA 3.1 G/DL (2.4-3.5); GLUCOSE FASTING 113.0 mg/dL (65-100); OSMOLALITY SERUM 276.0 MOSM/KG (275-295)
[2024-11-03] MEDS ORDERED: POTASSIUM CHLORIDE IN WATER 40 MEQ/100 ML PIGGYBAG IV SCH ×2 (09:49→10:20)
[2024-11-03] MEDS ORDERED: POTASSIUM PHOS,M-BASIC-D-BASIC 3 MM/ML VIAL IV NR (10:00)
[2024-11-03] MEDS ORDERED: POTASSIUM PHOS,M-BASIC-D-BASIC 9 MM in 0.9 % SODIUM CHLORIDE 250 ML IV ONE (10:30)
[2024-11-03] MEDS ORDERED: POTASSIUM PHOS,M-BASIC-D-BASIC 3 MM/ML VIAL IV ONE (19:00)
[2024-11-03] MEDS ORDERED: CEFTRIAXONE SODIUM 2,000 MG VIAL IV SCH (21:00)
[2024-11-04] VITALS (23 sets, daily range): BP systolic 99–141; BP diastolic 52–77; O2SAT 92–100
[2024-11-04] MEDS ORDERED: ACETAMINOPHEN 500 MG GEL..CAP PO PRN (00:45)
[2024-11-04] MEDS ORDERED: MAGNESIUM HYDROXIDE 30 ML BLIST.PACK PO NR (13:30)
[2024-11-05] VITALS (16 sets, daily range): BP systolic 93–128; BP diastolic 53–81; O2SAT 91–100
[2024-11-05 06:56] LABS: BASO % 0.0 % (0.1-1.2); EOS # 0.02 (0.04-0.54); EOS % 0.4 % (0.7-7.0); LYMPH # 0.69 (1.18-3.74); LYMPH % 12.8 % (19.3-53.1); MEAN PLATELET VOLUME 9.90 fl (9.4-12.4); MONO # 0.22 (0.24-0.82); MONO % 4.1 % (4.7-12.5); NEUT # 4.43 (1.56-6.13); NEUT % 82.1 % (34.0-71.1); RED CELL DISTRIBUTION WIDTH 13.7 % (11.6-14.4)
[2024-11-05 07:22] LABS: INR 1.02
[2024-11-05 07:37] LABS: ALT/SGPT 13 U/L (12-78); AST/SGOT 22 U/L (15-37); BILIRUBIN TOTAL 0.46 mg/dL (0.3-1.2); BILIRUBIN,CONJUGATED < 0.10 mg/dL (0.0-0.2); BUN CREA RATIO 38 (7.0-25.0); CHOL HDL RATIO 7.4 (0-5.0); CREATININE SERUM 1.04 mg/dL (0.70-1.30); GFR 68.89; GLOBULINA 3.2 G/DL (2.4-3.5); GLUCOSE FASTING 93 mg/dL (65-100); HDL 17 mg/dl (40-60); LDL 78 mg/dl (0-130); OSMOLALITY SERUM 279 MOSM/KG (275-295); VLDL 29 (0-39)
[2024-11-05] MEDS ORDERED: POTASSIUM CHLORIDE IN WATER 40 MEQ/100 ML PIGGYBAG IV SCH (09:00)
[2024-11-05 10:13] LABS: UREA CLEARANCE 23.2 ML/MIN
[2024-11-05 11:41] LABS: ABG PH 7.453 (7.35-7.45)
[2024-11-05 11:42] LABS: ABG PO2 78.7 mmHg (80-100); BICARBONATE 18.1 mmol/l (23-25); o2 50 %
[2024-11-05] MEDS ORDERED: LORazepam 2 MG/ML VIAL IV PUSH STA (13:46)
[2024-11-05] MEDS ORDERED: LORazepam 2 MG/ML VIAL IV NR (16:15)
[2024-11-05] MEDS ORDERED: LORazepam 2 MG/ML VIAL IV SCH (21:00)
[2024-11-06] VITALS (17 sets, daily range): BP systolic 72–130; BP diastolic 41–83; O2SAT 90–100
[2024-11-06] MEDS ORDERED: PANTOPRAZOLE SODIUM 40 MG/VIAL VIAL IV SCH (09:00)
[2024-11-06 13:40] LABS: ALT/SGPT 19.0 U/L (12-78); AST/SGOT 32.0 U/L (15-37); BILIRUBIN TOTAL 0.4 mg/dL (0.3-1.2); BUN CREA RATIO 64.0 (7.0-25.0); CREATININE SERUM 1.04 mg/dL (0.70-1.30); GFR 68.89; GLOBULINA 3.1 G/DL (2.4-3.5); GLUCOSE FASTING 121.0 mg/dL (65-100); OSMOLALITY SERUM 298.0 MOSM/KG (275-295)
[2024-11-06] MEDS ORDERED: HALOPERIDOL LACTATE 5 MG/ML AMPUL IV PRN (14:00)
[2024-11-06] MEDS ORDERED: POTASSIUM CHLORIDE IN WATER 40 MEQ/100 ML PIGGYBAG IV NR (14:02)
[2024-11-07 02:26] VITALS: BP 78/50; O2SAT 97
[2024-11-07 06:23] LABS: BASO % 0.2 % (0.1-1.2); EOS # 0.03 (0.04-0.54); EOS % 0.5 % (0.7-7.0); LYMPH # 0.62 (1.18-3.74); LYMPH % 10.4 % (19.3-53.1); MEAN PLATELET VOLUME 9.90 fl (9.4-12.4); MONO # 0.08 (0.24-0.82); MONO % 1.3 % (4.7-12.5); NEUT # 5.19 (1.56-6.13); NEUT % 87.3 % (34.0-71.1); RED CELL DISTRIBUTION WIDTH 14.2 % (11.6-14.4)
[2024-11-07 06:59] LABS: ALT/SGPT 22.0 U/L (12-78); AST/SGOT 33.0 U/L (15-37); BILIRUBIN TOTAL 0.45 mg/dL (0.3-1.2); CREATININE SERUM 1.21 mg/dL (0.70-1.30); GFR 57.85; GLOBULINA 3.0 G/DL (2.4-3.5); GLUCOSE FASTING 109.0 mg/dL (65-100)
[2024-11-07 07:56] LABS: BUN CREA RATIO 73.0 (7.0-25.0); OSMOLALITY SERUM 305.0 MOSM/KG (275-295)
[2024-11-07 08:29] VITALS: BP 72/40; O2SAT 88
[2024-11-07] MEDS ORDERED: NOREPINEPHRINE BITARTRATE 4 MG in DEXTROSE 5 % IN WATER 250 ML IV PRN (08:30)
[2024-11-07] MEDS ORDERED: POTASSIUM CHLORIDE 20MEQ/100ML H2O PB IV SCH (09:00)
[2024-11-07 09:01] VITALS: O2SAT 94
[2024-11-07] MEDS ORDERED: MORPHINE SULFATE 4 MG/ML VIAL IV SCH (09:45)
[2024-11-07] MEDS ORDERED: SODIUM CHLORIDE 0.9% IV SCH (10:30)
[2024-11-07] MEDS ORDERED: MORPHINE SULFATE IV SCH (10:30)
[2024-11-07 12:48] VITALS: O2SAT 87
[2024-11-07 15:53] VITALS: O2SAT 0
== END 2024-11-07 19:08 | disposition expired | DRG 388 ==
LOC: ER 16:24 → SURG 18:59 → SURH 18:59 → SEC-K 10-22 15:06 → SURH 10-22 15:07 → ICU 10-31 14:22 → MEDJ 11-06 19:46
PROVIDERS: Emergency Medicine Pediatric Emergency Medicine; General Practice; Internal Medicine; Internal Medicine Infectious Disease; Radiology Vascular & Interventional Radiology; ADMIT Student in an Organized Health Care Education/Training Program; ATTEND Student in an Organized Health Care Education/Training Program
PROC: 4A12X4Z Monitoring of Cardiac Electrical Activity, External Approach (ICD-10-PCS; 2024-10-12)
PROC: B24BZZZ Ultrasonography of Heart with Aorta (ICD-10-PCS; 2024-10-12)
PROC: 02HV33Z Insertion of Infusion Device into Superior Vena Cava, Percutaneous Approach (ICD-10-PCS; principal; 2024-10-13)
PROC: BW21YZZ Computerized Tomography (CT Scan) of Abdomen and Pelvis using Other Contrast (ICD-10-PCS; 2024-10-18)
PROC: 30243N1 Transfusion of Nonautologous Red Blood Cells into Central Vein, Percutaneous Approach (ICD-10-PCS; 2024-10-19)
PROC: B54MZZZ Ultrasonography of Right Upper Extremity Veins (ICD-10-PCS; 2024-10-29)
PROC: BW24YZZ Computerized Tomography (CT Scan) of Chest and Abdomen using Other Contrast (ICD-10-PCS; 2024-10-30)
PROC: 0W9B3ZX Drainage of Left Pleural Cavity, Percutaneous Approach, Diagnostic (ICD-10-PCS; 2024-11-02)
PROC: BW24ZZZ Computerized Tomography (CT Scan) of Chest and Abdomen (ICD-10-PCS; 2024-11-06)
DX: K56.600 Partial intestinal obstruction, unspecified as to cause (principal); J18.9 Pneumonia, unspecified organism; J96.01 Acute respiratory failure with hypoxia; B37.0 Candidal stomatitis; D62 Acute posthemorrhagic anemia; N39.0 Urinary tract infection, site not specified; I82.621 Acute embolism and thrombosis of deep veins of right upper extremity; I82.890 Acute embolism and thrombosis of other specified veins; R78.81 Bacteremia; I95.89 Other hypotension; N40.0 Benign prostatic hyperplasia without lower urinary tract symptoms; I48.0 Paroxysmal atrial fibrillation; I11.0 Hypertensive heart disease with heart failure; I50.9 Heart failure, unspecified; R31.9 Hematuria, unspecified; B96.20 Unspecified Escherichia coli [E. coli] as the cause of diseases classified elsewhere; E87.6 Hypokalemia